=== PATIENT | female | born 1950 | race Caucasian/White ===

== ENCOUNTER → 2016-06-16 | Outpatient (CLI) | payer MEDICARE, OTHER ==
--- NOTE | 2016-06-17 11:00 | MM ---
Reason for exam: screening (asymptomatic). Last mammogram was performed 1 year and 2 months ago. History: Patient is postmenopausal and is nulliparous. Physical Findings: A clinical breast exam by your physician is recommended on an annual basis and results should be correlated with mammographic findings. MG Screening Mammo w CAD Bilateral CC and MLO view(s) were taken. Prior study comparison: April 23, 2015, bilateral MG screening mammo w CAD. March 20, 2014, bilateral MG screening mammo w CAD. There are scattered fibroglandular densities. Focal asymmetry upper outer right breast is stable. No significant changes when compared with prior studies. ASSESSMENT: Benign, BI-RAD 2 RECOMMENDATION: Routine screening mammogram of both breasts in 1 year.
== END | disposition home or self-care (01) ==
LOC: RADMAMWWP 14:20
PROVIDERS: ATTEND Internal Medicine
DX: Z12.31 Encounter for screening mammogram for malignant neoplasm of breast (principal)

== ENCOUNTER → 2017-06-26 | Outpatient (CLI) | payer MEDICARE, OTHER ==
--- NOTE | 2017-06-29 08:34 | MM ---
Reason for exam: screening (asymptomatic). Last mammogram was performed 1 year ago. History: Patient is postmenopausal and is nulliparous. Physical Findings: A clinical breast exam by your physician is recommended on an annual basis and results should be correlated with mammographic findings. MG 3D Screening Mammo W/Cad Bilateral CC and MLO view(s) were taken. Prior study comparison: June 16, 2016, bilateral MG screening mammo w CAD. April 23, 2015, bilateral MG screening mammo w CAD. There are scattered fibroglandular densities. There are typically benign round calcifications in both breasts. There is no discrete abnormality. ASSESSMENT: Negative, BI-RAD 1 RECOMMENDATION: Routine screening mammogram of both breasts in 1 year.
== END | disposition home or self-care (01) ==
LOC: RADMAMWWP 10:05
PROVIDERS: ATTEND Internal Medicine
DX: Z12.31 Encounter for screening mammogram for malignant neoplasm of breast (principal)
CPT/HCPCS: 77063; 77067

== ENCOUNTER → 2017-09-04 | Outpatient (CLI) | payer MEDICARE, OTHER ==
--- NOTE | 2017-09-04 16:23 | US ---
EXAMINATION TYPE: US carotid duplex BILAT DATE OF EXAM: 09/04/2017 COMPARISON: NONE CLINICAL HISTORY: R29.810 FACIAL DROOP. dizziness EXAM MEASUREMENTS: RIGHT: Peak Systolic Velocity (PSV) cm/sec ----- Right CCA: 112.8 ----- Right ICA: 107.0 ----- Right ECA: 187.3 ICA/CCA ratio: 0.9 RIGHT: End Diastole cm/sec ----- Right CCA: 31.4 ----- Right ICA: 32.8 ----- Right ECA: 47.9 LEFT: Peak Systolic Velocity (PSV) cm/sec ----- Left CCA: 101.7 ----- Left ICA: 96.5 ----- Left ECA: 118.5 ICA/CCA ratio: 0.9 LEFT: End Diastole cm/sec ----- Left CCA: 35.7 ----- Left ICA: 31.8 ----- Left ECA: 31.8 VERTEBRALS (direction of flow): Right Vertebral: Antegrade Left Vertebral: Antegrade Rhythm: Normal No significant stenosis seen, elevated velocities right ECA. Minimal plaque seen. IMPRESSION: I DO NOT SEE EVIDENCE OF A HEMODYNAMICALLY SIGNIFICANT STENOSIS IN EITHER CAROTID SYSTEM. Criteria for Assigning % of Stenosis / Diameter reduction (Estimation based on the indirect measurements of the internal carotid artery velocities (ICA PSV). 1. Normal (no stenosis)=ICA PSV < 125 cm/s: ratio < 2.0: ICA EDV<40 cm/s. 2. Less than 50% stenosis=ICA PSV < 125 cm/s: ratio < 2.0: ICA EDV<40 cm/s. 3. 50 to 69% stenosis=ICA PSV of 125 to 230 cm/s: ration 2.0 ? 4.0: ICA EDV 40-100 cm/s. 4. Greater than 70% stenosis to near occlusion= ICA PSV > 230 cm/s: ratio > 4.0: ICA EDV > 100 cm/s. 5. Near occlusion= ICA PSV velocities may be low or undetectable: variable ratio and ICA EDV. 6. Total occlusion=unable to detect flow.
== END | disposition home or self-care (01) ==
LOC: RADUSWWP 15:48
PROVIDERS: ATTEND Psychiatry & Neurology Neurology
DX: R29.810 Facial weakness (principal)
CPT/HCPCS: 93880

== ENCOUNTER → 2018-03-12 | Outpatient (CLI) | payer MEDICARE ==
--- NOTE | 2018-03-12 15:51 | CT ---
EXAMINATION TYPE: CT brain wo con DATE OF EXAM: 03/12/2018 COMPARISON: 04/25/2013 HISTORY: Partial Epilepsy w/impairment of conscious. CT DLP: 892.[address] of the brain was performed. The ventricles, basal cisterns and sulci overlying the cerebral convexities demonstrate mild enlargem ent. There is no evidence for intracranial hemorrhage or sulcal effacement. There is decreased attenuation about the periventricular white matter and deep white matter of both c erebral hemispheres, compatible with chronic small vessel ischemia. Differential diagnosis does inclu de demyelination. No mass effects are seen.No midline shift. Osseous calvarium is intact. If symptoms persist consider MRI. IMPRESSION: 1. Age related atrophic and chronic small vessel ischemic change without acute intracranial process s een at this time.
== END | disposition home or self-care (01) ==
LOC: RADCTMAIN 14:55
PROVIDERS: ATTEND Psychiatry & Neurology Neurology
DX: G31.1 Senile degeneration of brain, not elsewhere classified (principal); I67.82 Cerebral ischemia
CPT/HCPCS: 70450

== ENCOUNTER → 2018-07-07 | Outpatient (CLI) | payer MEDICARE ==
--- NOTE | 2018-07-08 09:51 | MM ---
Reason for exam: screening (asymptomatic). Last mammogram was performed 1 year ago. History: Patient is postmenopausal and is nulliparous. Physical Findings: A clinical breast exam by your physician is recommended on an annual basis and results should be correlated with mammographic findings. MG 3D Screening Mammo W/Cad Bilateral CC and MLO view(s) were taken. Prior study comparison: June 26, 2017, bilateral MG 3d screening mammo w/cad. June 16, 2016, bilateral MG screening mammo w CAD. There are scattered fibroglandular densities. Benign appearing bilateral calcifications. No significant changes when compared with prior studies. ASSESSMENT: Benign, BI-RAD 2 RECOMMENDATION: Routine screening mammogram of both breasts in 1 year.
== END | disposition home or self-care (01) ==
LOC: RADMAMWWP 09:46
PROVIDERS: ATTEND Internal Medicine
DX: Z12.31 Encounter for screening mammogram for malignant neoplasm of breast (principal)
CPT/HCPCS: 77063; 77067

== ENCOUNTER → 2019-01-25 | Outpatient (CLI) | payer MEDICARE, OTHER | END | disposition home or self-care (01) | LOC: LABWHC1 15:58 | PROVIDERS: ATTEND Surgery Plastic and Reconstructive Surgery | DX: Z01.810 Encounter for preprocedural cardiovascular examination (principal) | CPT/HCPCS: 36415; 93005 ==

== ENCOUNTER → 2019-04-22 | Outpatient (CLI) | payer MEDICARE, OTHER ==
[2019-04-22 09:34] LABS: HCT 41.1 % (34.0-46.0); HGB 13.5 gm/dL (11.4-16.0); MCH 29.7 pg (25.0-35.0); MCHC 32.9 g/dL (31.0-37.0); MCV 90.1 fL (80.0-100.0); Platelet Count 254 k/uL (150-450); RBC 4.56 m/uL (3.80-5.40); WBC 10.5 k/uL (3.8-10.6)
[2019-04-22 16:09] LABS: African American GFR (CKD) 87.2 (60.0-200.0); Albumin 4.4 g/dL (3.80-4.90); Albumin/Globulin Ratio 1.69 (1.60-3.17); Anion Gap 7.7 mmol/L (4.00-12.00); BUN/Creat Ratio 22.5 Ratio (12.00-20.00); Calcium 9.3 mg/dL (8.7-10.3); Carbon Dioxide 27.3 mmol/L (21.6-31.8); Globulin 2.6 g/dL (1.6-3.3); Non-African American GFR(CKD) 75.2 (60.0-200.0); Potassium 4.5 mmol/L (3.5-5.5); Total Bilirubin 0.3 mg/dL (0.2-1.2)
== END | disposition home or self-care (01) ==
LOC: LABWHC1 08:49
PROVIDERS: ATTEND Surgery Plastic and Reconstructive Surgery
DX: C18.2 Malignant neoplasm of ascending colon (principal)
CPT/HCPCS: 36415; 80053; 85027

== ENCOUNTER 2019-04-28 07:15 | Inpatient (IN) | payer MEDICARE, OTHER ==
[2019-04-26 12:46] VITALS: BMI 29.2
[2019-05-02 08:59] VITALS: RESP 16
[2019-05-02 16:13] VITALS: BP 168/88; PULSE 51; TEMP 97.6
== END 2019-05-02 16:14 | disposition home or self-care (01) | DRG 329 ==
LOC: OR 07:15 → EDSTATUS 07:30 → 4SSUR 11:33 → OR 04-29 14:35
PROVIDERS: ADMIT Surgery Plastic and Reconstructive Surgery; ATTEND Surgery Plastic and Reconstructive Surgery
PROC: 0DJD8ZZ Inspection of Lower Intestinal Tract, Via Natural or Artificial Opening Endoscopic (ICD-10-PCS; 2019-04-28)
PROC: 0DTF4ZZ Resection of Right Large Intestine, Percutaneous Endoscopic Approach (ICD-10-PCS; principal; 2019-04-29)
PROC: 8E0W4CZ Robotic Assisted Procedure of Trunk Region, Percutaneous Endoscopic Approach (ICD-10-PCS; principal; 2019-04-29)
DX: C18.0 Malignant neoplasm of cecum (principal); K56.2 Volvulus; Q43.8 Other specified congenital malformations of intestine; K56.7 Ileus, unspecified; E78.5 Hyperlipidemia, unspecified; E11.9 Type 2 diabetes mellitus without complications; F03.90 Unspecified dementia, unspecified severity, without behavioral disturbance, psychotic disturbance, mood disturbance, and anxiety; F20.9 Schizophrenia, unspecified; F31.9 Bipolar disorder, unspecified; F41.9 Anxiety disorder, unspecified; G40.909 Epilepsy, unspecified, not intractable, without status epilepticus; I11.9 Hypertensive heart disease without heart failure; K64.4 Residual hemorrhoidal skin tags; F70 Mild intellectual disabilities; K21.9 Gastro-esophageal reflux disease without esophagitis; R33.9 Retention of urine, unspecified; K57.30 Diverticulosis of large intestine without perforation or abscess without bleeding; K64.8 Other hemorrhoids; Z79.82 Long term (current) use of aspirin; Z79.84 Long term (current) use of oral hypoglycemic drugs; Z79.899 Other long term (current) drug therapy; Z82.49 Family history of ischemic heart disease and other diseases of the circulatory system; Z86.73 Personal history of transient ischemic attack (TIA), and cerebral infarction without residual deficits; Z87.828 Personal history of other (healed) physical injury and trauma; Z90.49 Acquired absence of other specified parts of digestive tract
CPT/HCPCS: 45378; 71045; 71260; 74019; 74177; 80048; 80053; 82105; 82378; 82746; 83735; 84100; 85025; 86850; 86900; 86901; 88309; 94760

== ENCOUNTER → 2019-10-17 | Outpatient (CLI) | payer MEDICARE, OTHER ==
--- NOTE | 2019-10-18 10:08 | MM ---
Reason for exam: screening (asymptomatic). Last mammogram was performed 1 year and 3 months ago. History: Patient is postmenopausal and is nulliparous. Physical Findings: A clinical breast exam by your physician is recommended on an annual basis and results should be correlated with mammographic findings. MG 3D Screening Mammo W/Cad Bilateral CC and MLO view(s) were taken. Prior study comparison: July 07, 2018, bilateral MG 3d screening mammo w/cad. June 26, 2017, bilateral MG 3d screening mammo w/cad. There are scattered fibroglandular densities. There is no discrete abnormality. No significant changes when compared with prior studies. ASSESSMENT: Negative, BI-RAD 1 RECOMMENDATION: Routine screening mammogram of both breasts in 1 year.
== END | disposition home or self-care (01) ==
LOC: RADMAMWWP 09:14
PROVIDERS: ATTEND Internal Medicine
DX: Z12.31 Encounter for screening mammogram for malignant neoplasm of breast (principal)
CPT/HCPCS: 77063; 77067

== ENCOUNTER 2021-05-23 10:57 | Day surgery (SDC) | payer MEDICARE, OTHER ==
[2021-05-21 09:05] VITALS: BMI 25.5
[2021-05-23] MEDS ORDERED: SODIUM CHLORIDE 0.9% 500 ML 500 ML IV ONE (11:08)
[2021-05-23 11:29] VITALS: RESP 16; TEMP 98.3
[2021-05-23 11:32] LABS: Glucose,Whole Blood 111 mg/dL (75-99)
[2021-05-23] MEDS ORDERED: fentaNYL (PF) 50 MCG/ML 2 ML AMP ONE (11:58)
[2021-05-23] MEDS ORDERED: BENZOCAINE SPRAY 1 CAN MUCOUS MEM ONE (12:01)
[2021-05-23] MEDS ORDERED: fentaNYL (PF) 50 MCG/ML 2 ML AMP IV ONE ×2 (12:03)
[2021-05-23] MEDS ORDERED: MIDAZOLAM 2 MG/2 ML VIAL IV ONE (12:03)
--- NOTE | 2021-05-23 12:54 | ECHOT ---
TRANSESOPHAGEAL ECHOCARDIOGRAM INDICATION: TIA. PROCEDURE NOTE: After obtaining informed consent, transesophageal echocardiogram is performed in left lateral position using a probe. Local and IV sedation were obtained with Xylocaine spray, 1 mg of Versed and 50 mcg of fentanyl. The patient tolerated the procedure well without any obvious immediate complications. FINDINGS: 1. Interatrial septum: There is no evidence of sxcx-ja-zxnfy shunt with color-flow Doppler. There is evidence of wkqux-ng-itei shunt with agitated saline contrast study. 2. There is no intracardiac thrombus within the left atrial appendage, left atrium, right atrium, right ventricle. 3. Left ventricle has normal size and systolic function. 4. Aortic valve is a 3-leaflet valve. There is no evidence of aortic stenosis or regurgitation. 5. Tricuspid valve appears normal. There is mild tricuspid regurgitation. 6. Mitral valve shows mild mitral regurgitation. LV systolic function is normal. Aortic root measures within normal limits. CONCLUSION: 1. There is evidence of zucjj-ro-mzxd shunt involving an aneurysmal interatrial septum and secondary to a PFO. 2. Prominent Chiari network is noted in the right atrium. 3. Mild mitral regurgitation. 4. Normal LV function. MMODL / IJN: [id number] /
[2021-05-23 16:13] VITALS: BP 151/73; PULSE 66
== END 2021-05-23 13:39 ==
LOC: CATHCVL 10:57
PROVIDERS: ATTEND Internal Medicine Cardiovascular Disease
DX: G45.9 Transient cerebral ischemic attack, unspecified (principal); I08.1 Rheumatic disorders of both mitral and tricuspid valves; Q21.1 Atrial septal defect; I10 Essential (primary) hypertension; E11.9 Type 2 diabetes mellitus without complications; F03.90 Unspecified dementia, unspecified severity, without behavioral disturbance, psychotic disturbance, mood disturbance, and anxiety; F41.9 Anxiety disorder, unspecified; F32.A Depression, unspecified; E78.2 Mixed hyperlipidemia; R55 Syncope and collapse; Z79.899 Other long term (current) drug therapy; Z79.82 Long term (current) use of aspirin; Z79.84 Long term (current) use of oral hypoglycemic drugs; Z79.02 Long term (current) use of antithrombotics/antiplatelets; Z82.49 Family history of ischemic heart disease and other diseases of the circulatory system
CPT/HCPCS: 93312; 93320; 93325; J2250; J3010

== ENCOUNTER 2021-07-09 09:01 | Day surgery (SDC) | payer MEDICARE, OTHER ==
[~2021-07-09 09:01] MED LIST: ALPRAZolam 0.25 MG TAB PO PRN; ALPRAZolam 0.5 MG TAB PO PRN; ASPIRIN 325 MG TAB PO STA; ATORVASTATIN 80 MG TAB PO STA; HEPARIN SODIUM,PORCINE 10,000 UNIT in SODIUM CHLORIDE 0.9% 1,000 ML IRRIGATION PRN; HEPARIN SODIUM,PORCINE 2,500 UNIT in SODIUM CHLORIDE 0.9% 250 ML IRRIGATION PRN; NITROGLYCERIN SL TABS 0.4 MG TAB SUBLINGUAL PRN
[2021-07-09] MEDS: SODIUM CHLORIDE 0.9% 1,000 ML in EMPTY BAG 1 BAG IV SCH ×3 (09:35→20:10)
[2021-07-09] MEDS ORDERED: ASPIRIN 81 MG ONE (09:37)
[2021-07-09 09:41] LABS: Glucose,Whole Blood 125 mg/dL (75-99)
[2021-07-09] MEDS ORDERED: MIDAZOLAM 2 MG/2 ML VIAL IV ONE (11:00)
[2021-07-09] MEDS ORDERED: fentaNYL (PF) 50 MCG/ML 2 ML AMP IV ONE (11:04)
[2021-07-09] MEDS: fentaNYL (PF) 50 MCG/ML 2 ML AMP IV ONE ×2 (11:04→11:08)
[2021-07-09] MEDS ORDERED: LIDOCAINE 1% INJ 10MG/ML (30 ML VIAL-PF) SQ ONE (11:06)
[2021-07-09 14:46] VITALS: RESP 18
[2021-07-09] MEDS: LORazepam 0.5 MG TAB PO SCH ×2 (16:29→20:06)
[2021-07-09] MEDS: haloperidoL 5 MG TAB PO SCH (20:05)
[2021-07-09] MEDS: BENZTROPINE MESYLATE 0.5 MG TAB PO SCH (20:06)
[2021-07-09] MEDS: CALCIUM CARB-VIT D 500 MG-5 MCG TAB PO SCH (20:06)
[2021-07-09] MEDS: NON FORMULARY DRUG (Brivaracetam [Briviact] 50 MG Tablet) PO SCH (20:11)
[2021-07-09] MEDS ORDERED: OXCARBAZEPINE 150 MG PO SCH (21:00)
[2021-07-09] MEDS ORDERED: ATORVASTATIN 40 MG TAB PO SCH (21:00)
[2021-07-09] MEDS ORDERED: SERTRALINE 25 MG TAB PO SCH (21:00)
[2021-07-09] MEDS ORDERED: SERTRALINE 100 MG TAB PO SCH (21:00)
[2021-07-09] MEDS ORDERED: NON FORMULARY DRUG (Lubiprostone [Amitiza] 24 MCG Capsule) PO SCH (21:00)
[2021-07-09] MEDS ORDERED: LINAGLIPTIN 5 MG TABLET PO SCH (21:00)
[2021-07-09] MEDS ORDERED: NON FORMULARY DRUG (Oxcarbazepine [Oxtellar Xr] 300 MG Tablet) PO SCH (21:00)
--- NOTE | 2021-07-09 23:58 | P.PCN ---
Description of Procedure: TRANSCATHETER CLOSURE OF INTERATRIAL COMMUNICATION/ PFO PROCEDURES PERFORMED: 1. Closure of PFO via a right femoral venous percutaneous approach using a 25mm Amplatzer Occluder device. 2. Intracardiac echocardiography using an 8-Croatian AcuNav ultrasound catheter 3. RFV access under direct U/S visualization x 2 DATE OF PROCEDURE: 07/09/2021 OPERATORS: 1. Talha Aguiar DO interventional cardiology INDICATIONS: History of crypotogenic stroke PFO and positive bubble study by TAWNYA. SEDATION: Under my direct supervision the patient was administered moderate conscious sedation with Versed and Fentanyl for a total of 44 minutes. PRPOCEDURE SUMMARY: Prior to sedation, the risks, benefits and alternatives of the procedure were discussed with the patient and guardian. Both verbal and written consents were obtained. The patient was transported to the cardiac catheterization suite and prepped and draped in the usual sterile fashion for access to the right groin. The patient received conscious sedation in the form of Versed and Fentanyl intravenously. 2% lidocaine was infused into the right groin for local anesthe franc. Then, under direct ultrasound visualization, right femoral vein was accessed using micropuncture technique and two 8-Croatian 11 cm sheaths were placed into the right femoral vein. The 8-Croatian AcuNav ICE ultrasound catheter was then advanced through into the right atrium where intracardiac echocardiography was performed. PRE PROCEDURE ULTRASOUND: This demonstrated no evidence of pericardial effusion. It demonstrated normal appearing aortic valve. Overall the left ventricular function and chamber size appeared within normal limits. The LV function appeared preserved with no significant wall motion abnormalities. There was color flow visualized across the inter-atrial septum with ICE. The tricuspid valve was normal with mild tricuspid regurgitation. The visualized portions of the left atrium and left atrial appendage demonstrated no significant abnormalities. There was a significant PFO by color. After images were obtained with the ICE catheter, a 6-Croatian multipurpose catheter was inserted into the RFV and was used to cross the septum into the left atrium. Heparin was given to keep ACT > 200-250. The catheter was then advanced into the LA and placed in the L superior pulmonary vein. A 0.035 260 cm Garcia wire was then advanced via the catheter and placed in the vein. The catheter was then removed and the 8-Croatian sheath was also removed over the Amplatzer wire. This was exchanged for a 8 Croatian 91-zjrqrd-kapy delivery sheath with introducer. This was advanced to the PFO where the sheath was then advanced across the defect over the Garcia wire. The introducer was removed and blood was drawn back. The Garcia wire was then removed. A 25mm Amplatzer PFO occluder device was then opened, prepped and then loaded into the sheath. Under fluoroscopy and ultrasound guidance, the Amplatzer occluder was advanced through the edge of the sheath. The left atrial side was deployed and was pulled back to the interatrial septum and the right atrial side was deployed. With the device still captured, intracardiac echocardiography was performed demonstrating good capture on all 6 rims with no impingement on valvular function. The delivery system was then released and removed. The final intracardiac echocardiographic images were again once obtained. POST DELIVERY INTRACARDIAC ECHOCARDIOGRAPHIC IMAGES: This demonstrated again no evidence of pericardial effusion. All 6 rims were visualized and demonstrated adequate purchase and the device in stable position. There was no further evidence of interatrial communication by color flow Doppler. The aortic and mitral valves appeared to be functioning appropriately with no impingement of flow. Again overall the left ventricular function appeared within normal limits and again, no effusion was noted. At this point, the 8-Croatian catheters were pulled and Z stitch was placed with hemostasis achieved. The patient was transferred to the [facility] in stable condition. COMPLICATIONS: None. FINAL IMPRESSIONS: Successful closure of a PFO with a 25 mm Amplatzer PFO occluder device. No evidence of complication, arrhythmia or other noted. RECOMMENDATIONS: A limited transthoracic echocardiogram will be obtained in the morning. The patient will be transferred to the floor, monitoring overnight. Will plan for discharge in the morning. Aspirin daily, Plavix 75 mg daily, followup in the clinic in approximately 1 week as previously scheduled. Antibiotic prophylaxis for any procedure for one year.
[2021-07-10 08:03] VITALS: BP 127/78; PULSE 61; TEMP 97.7
--- NOTE | 2021-07-10 08:17 | XR ---
EXAMINATION TYPE: XR chest 2V DATE OF EXAM: 07/10/2021 COMPARISON: Chest x-ray April 29, 2019 HISTORY: ASD/PFO placement TECHNIQUE: Frontal and lateral views of the chest are obtained. FINDINGS: Minimal linear density over the right posterior aspect of the heart corresponds to a surgic al patch from ASD repair. Stable mild cardiomegaly with small to tiny bilateral pleural effusions see n best on lateral x-ray. No pneumothorax noted bilaterally. Patchy left basilar opacity favors atelec tatic change. The osseous structures are intact. IMPRESSION: As above.
[2021-07-10] MEDS ORDERED: TAMSULOSIN 0.4 MG CAP.ER.24H PO SCH (08:30)
[2021-07-10] MEDS ORDERED: PANTOPRAZOLE 40 MG TABLET PO SCH (09:00)
[2021-07-10] MEDS ORDERED: NON FORMULARY DRUG (Eslicarbazepine Acetate [Aptiom] 600 MG Tablet) PO SCH (09:00)
[2021-07-10] MEDS ORDERED: FAMOTIDINE 20 MG TAB PO SCH (09:00)
[2021-07-10] MEDS ORDERED: ARIPiprazole 15 MG TAB PO SCH (09:00)
[2021-07-10] MEDS ORDERED: CHOLECALCIFEROL 25 MCG (1000 IU) TABLET PO SCH (09:00)
[2021-07-10] MEDS ORDERED: ASPIRIN 81 MG PO SCH (09:00)
[2021-07-10] MEDS ORDERED: LOSARTAN 25 MG TAB PO SCH (09:00)
[2021-07-10] MEDS ORDERED: CLOPIDOGREL 75 MG TAB PO SCH (09:00)
[2021-07-10 09:08] LABS: Basophils # (A) 0.03 X 10*3/uL (0.00-0.10); Basophils % (A) 0.3 %; Eosinophils # (A) 0.22 X 10*3/uL (0.04-0.35); Eosinophils % (A) 2.4 %; HCT 38.5 % (37.2-46.3); HGB 13.2 g/dL (12.0-15.0); Lymphocytes % (A) 13.2 %; MCH 31.1 pg (27.0-32.0); MCHC 34.3 g/dL (32.0-37.0); MCV 90.6 fL (80.0-97.0); Mean Platelet Volume 9.5 fL (9.5-12.2); Monocytes # (A) 0.58 X 10*3/uL (0.20-1.00); Monocytes % (A) 6.4 %; NRBC Per 100 WBC 0 /100 WBCS (0.0-0.0); Neutrophils # (A) 6.95 X 10*3/uL (1.80-7.70); Neutrophils % (A) 76.7 %; Platelet Count 185 X 10*3/uL (140-440); RBC 4.25 X 10*6/uL (4.10-5.20); RDW 13.6 % (11.5-14.5); WBC 9.07 X 10*3/uL (4.50-10.00)
[2021-07-10] MEDS: CALCIUM CARB-VIT D 500 MG-5 MCG TAB PO SCH (09:09)
[2021-07-10] MEDS: LORazepam 0.5 MG TAB PO SCH (09:09)
[2021-07-10] MEDS: BENZTROPINE MESYLATE 0.5 MG TAB PO SCH (09:10)
[2021-07-10] MEDS: haloperidoL 5 MG TAB PO SCH (09:10)
[2021-07-10] MEDS: SODIUM CHLORIDE 0.9% 1,000 ML in EMPTY BAG 1 BAG IV SCH (09:12)
[2021-07-10] MEDS: NON FORMULARY DRUG (Brivaracetam [Briviact] 50 MG Tablet) PO SCH (09:12)
[2021-07-10 10:18] LABS: Anion Gap 11.3 mmol/L (10.00-18.00); Carbon Dioxide 22.7 mmol/L (20.0-27.5); Non-African American GFR(CKD) 87.2 (60.0-200.0); Potassium 3.8 mmol/L (3.5-5.5)
--- NOTE | 2021-07-10 12:34 | CA ---
Transthoracic Echo Report Name: Micki Valladares Age: 71 Gender: F : 1950 Exam Date: 07/10/2021 07:39 Exam Location: [facility] Ht (in): 65 Wt (lb): 168 Ordering Physician: Talha Aguiar DO ([email or web address]) Attending/Referring Phys: Plastic Mould Maker Shanti Harden RDCS Procedure CPT: Indications: Post ASD/PFO Insertion Cardiac Hx: Technical Quality: Fair Contrast 1: Total Dose (mL): Contrast 2: Total Dose (mL): MEASUREMENTS (Male / Female) Normal Values FINDINGS Left Ventricle Left ventricular ejection fraction is estimated at 55-60 %. Right Ventricle Right Atrium Left Atrium ATRIAL SEPTAL DEVICE IS IN PLACE. NO SHUNT SEEN Mitral Valve Aortic Valve Tricuspid Valve Pulmonic Valve Pericardium No pericardial effusion. Aorta CONCLUSIONS Atrial septal device was seen any place No evidence of residual shunt No evidence of pericardial effusion Previewed by: Dr. Lacho Meza MD (Electronically Signed) Final Date: 10 Jul 2021 12:34
--- NOTE | 2021-07-10 13:06 | P.DS ---
Providers Attending physician: Talha Aguiar DO Primary care physician: Tyesha Torres MD Hospital Course: Patient is a pleasant 71-year-old female with history of diabetes, hypertension, hyperlipidemia, stroke. She has been evaluated for recurrent strokes and had workup with TAWNYA showing PFO. Given cryptogenic stroke recommendation was for closure of PFO. Patient underwent PFO closure 07/09/2021. Repeat echo 07/10/2021 showed no significant shunt and PFO closure device in place without any pericardial effusion. She has been doing well on medications this morning. She does confused which is her baseline. She denies any chest pain or pressure. Appears stable for discharge home with outpatient follow-up. Plan - Discharge Summary Discharge Rx Participant: No New Discharge Prescriptions: Continue Ammonium Lactate Cream [Lac-Hydrin 12% Cream] 1 applic TOPICAL DAILY sitaGLIPtin [Januvia] 100 mg PO HS LORazepam [Ativan] 0.5 mg PO TID ARIPiprazole [Abilify] 30 mg PO DAILY Aspirin 81 mg PO DAILY Clotrimazole Cream [Lotrimin Cream] 1 applic TOPICAL DAILY Benztropine Mesylate [Cogentin] 0.5 mg PO BID Sertraline [Zoloft] 25 mg PO HS Atorvastatin [Lipitor] 40 mg PO HS Losartan Potassium [Cozaar] 25 mg PO DAILY Sertraline [Zoloft] 100 mg PO HS Lubiprostone [Amitiza] 24 mcg PO HS Cholecalciferol [Vitamin D3 (25 Mcg = 1000 Iu)] 2,000 unit PO DAILY Calcium Carb-Vit D 500Mg-5Mcg [Oscal 500+D 5 Mcg (200 Iu)] 1 each PO BID Brivaracetam [Briviact] 50 mg PO BID Tamsulosin [Flomax] 0.4 mg PO PC-BRKFST #30 cap.er.24h haloperidoL [Haldol] 5 mg PO BID OXcarbazepine [Oxtellar Xr] 300 mg PO HS Famotidine 20 mg PO DAILY Pantoprazole [Protonix] 40 mg PO DAILY Clopidogrel [Plavix] 75 mg PO DAILY OXcarbazepine [Oxtellar Xr] 150 mg PO HS Eslicarbazepine Acetate [Aptiom] 600 mg PO DAILY Discharge Medication List ARIPiprazole [Abilify] 30 mg PO DAILY 12/16/13 [History] Ammonium Lactate Cream [Lac-Hydrin 12% Cream] 1 applic TOPICAL DAILY 12/16/13 [History] Aspirin 81 mg PO DAILY 12/16/13 [History] Clotrimazole Cream [Lotrimin Cream] 1 applic TOPICAL DAILY 12/16/13 [History] LORazepam [Ativan] 0.5 mg PO TID 12/16/13 [History] sitaGLIPtin [Januvia] 100 mg PO HS 12/16/13 [History] Atorvastatin [Lipitor] 40 mg PO HS 04/27/19 [History] Benztropine Mesylate [Cogentin] 0.5 mg PO BID 04/27/19 [History] Brivaracetam [Briviact] 50 mg PO BID 04/27/19 [History] Calcium Carb-Vit D 500Mg-5Mcg [Oscal 500+D 5 Mcg (200 Iu)] 1 each PO BID 04/27/19 [History] Cholecalciferol [Vitamin D3 (25 Mcg = 1000 Iu)] 2,000 unit PO DAILY 04/27/19 [History] Losartan Potassium [Cozaar] 25 mg PO DAILY 04/27/19 [History] Lubiprostone [Amitiza] 24 mcg PO HS 04/27/19 [History] Sertraline [Zoloft] 25 mg PO HS 04/27/19 [History] Sertraline [Zoloft] 100 mg PO HS 04/27/19 [History] Tamsulosin [Flomax] 0.4 mg PO PC-BRKFST #30 cap.er.24h 05/02/19 [Rx] Clopidogrel [Plavix] 75 mg PO DAILY 05/21/21 [History] Famotidine 20 mg PO DAILY 05/21/21 [History] OXcarbazepine [Oxtellar Xr] 150 mg PO HS 05/21/21 [History] OXcarbazepine [Oxtellar Xr] 300 mg PO HS 05/21/21 [History] Pantoprazole [Protonix] 40 mg PO DAILY 05/21/21 [History] haloperidoL [Haldol] 5 mg PO BID 05/21/21 [History] Eslicarbazepine Acetate [Aptiom] 600 mg PO DAILY 07/08/21 [History] Follow up Appointment(s)/Referral(s): Berto Nunez MD [STAFF PHYSICIAN] - 07/16/21 3:30 pm
== END 2021-07-10 15:30 | disposition home or self-care (01) ==
LOC: CATHCVL 09:01 → 6NMEDSUR 12:23 → CATHCVL 07-10 15:30
PROVIDERS: ATTEND Internal Medicine
DX: Q21.1 Atrial septal defect (principal); Z20.822 Contact with and (suspected) exposure to COVID-19; I10 Essential (primary) hypertension; E11.9 Type 2 diabetes mellitus without complications; E78.5 Hyperlipidemia, unspecified; Z79.02 Long term (current) use of antithrombotics/antiplatelets; Z79.82 Long term (current) use of aspirin; Z79.84 Long term (current) use of oral hypoglycemic drugs; Z86.73 Personal history of transient ischemic attack (TIA), and cerebral infarction without residual deficits
CPT/HCPCS: 93308; 93580; 93662; 86900; 86901; 80048; 85025; 86850; 87635; 71046; C1769 ×4; C1894; C1817; C1759; J2250; J0690; J2001; J3010; J1644

== ENCOUNTER → 2021-11-12 | Outpatient (CLI) | payer MEDICARE, OTHER ==
--- NOTE | 2021-11-12 13:23 | US ---
EXAMINATION TYPE: US venous doppler duplex LE RT DATE OF EXAM: 11/12/2021 12:45 PM COMPARISON: NONE CLINICAL HISTORY: M79.604 PAIN IN RT LEG. Intermittent pain right leg SIDE PERFORMED: right TECHNIQUE: The lower extremity deep venous system is examined utilizing real time linear array sonog shirin with graded compression, doppler sonography and color-flow sonography. VESSELS IMAGED: Common Femoral Vein Deep Femoral Vein Greater Saphenous Vein * Femoral Vein Popliteal Vein Small Saphenous Vein * Proximal Calf Veins (* superficial vessels) Right Leg: No evidence of DVT Grayscale, color doppler, spectral doppler imaging performed of the de ep veins of the lower extremities. There is normal flow, compressibility, vascular waveforms. IMPRESSION: No evidence of right lower extremity deep vein thrombosis
== END | disposition home or self-care (01) ==
LOC: RADUSWWP 12:18
PROVIDERS: ATTEND Family Medicine
DX: M79.604 Pain in right leg (principal)

== ENCOUNTER → 2023-05-06 | Outpatient (CLI) | payer MEDICARE, OTHER ==
--- NOTE | 2023-05-07 08:28 | US ---
EXAMINATION TYPE: US abdomen complete DATE OF EXAM: 05/06/2023 COMPARISON: CLINICAL INDICATION: Female, 73 years old with history of Z85.038 PERSONAL HX OF SHANON LRG INTESTINE; P oor historian. Patient said she had her gallbladder removed through her belly button. TECHNIQUE: Multiple sonographic images of the abdomen are obtained. FINDINGS: EXAM MEASUREMENTS: Liver Length: 16.0 cm CBD: 0.6 cm Spleen: 9.7 cm Right Kidney: 11.2 x 4.5 x 4.3 cm Left Kidney: 10.6 x 4.6 x 4.0 cm Pancreas: Tail not well seen Liver: Small 9 mm echogenic focus with shadowing at denny hepatis = 0.9 x 0.8 cm Gallbladder: Surgically absent. Peristalsing seen in GB fossa region. Evidence for sonographic Bland's sign: neg CBD: wnl CHD: wnl Spleen: wnl Right Kidney: No hydronephrosis or masses seen Left Kidney: No hydronephrosis. Upper IVC: wnl Abd Aorta: No AAA visualized at time of scan IMPRESSION: 9 mm echogenic focus with shadowing at the denny hepatis possibly shadowing debris within interposed bowel. Questionable clinical significance. The gallbladder surgically absent. Consider 3 month follow -up ultrasound to reassess.
== END | disposition home or self-care (01) ==
LOC: RADUSWWP 08:31
PROVIDERS: ATTEND Family Medicine
DX: Z85.038 Personal history of other malignant neoplasm of large intestine (principal); Z90.49 Acquired absence of other specified parts of digestive tract
CPT/HCPCS: 76700

== ENCOUNTER → 2023-08-19 | Outpatient (CLI) | payer MEDICARE, OTHER ==
--- NOTE | 2023-08-19 15:44 | US ---
EXAMINATION TYPE: US abdomen comp/pelvis limited DATE OF EXAM: 08/19/2023 COMPARISON: US 05/06/2023, CT chest abdomen pelvis 04/28/2019 CLINICAL INDICATION: Female, 73 years old with history of R10.9 UNSPECIFIED ABDOMINAL PAIN; F/U prior US, GB removed EXAM MEASUREMENTS: Liver Length: 14.5 cm CBD: 0.6 cm Spleen: 10.4 cm Right Kidney: 10.3 x 4.2 x 4.9 cm Left Kidney: 11.7 x 4.6 x 4.7 cm Pancreas: wnl Liver: Echogenic area visualized on today's exam as visualized on prior. Gallbladder: Surgically absent CBD: wnl Spleen: wnl Right Kidney: wnl, lower pole gassed out Left Kidney: wnl Upper IVC: wnl Abd Aorta: wnl Bladder: wnl Bilateral Jets Seen No IMPRESSION: 1. No ultrasound evidence for an acute process. 2. Previously seen echogenic focus in the denny hepatis is redemonstrated. Nonspecific appearance and possibly could represent shadowing debris within bowel versus other etiologies. Consider further izabela luation with CT abdomen with and without IV contrast.
== END | disposition home or self-care (01) ==
LOC: RADUSWWP 08:00
PROVIDERS: ATTEND Family Medicine
DX: R10.9 Unspecified abdominal pain (principal)
CPT/HCPCS: 76700; 76857

== ENCOUNTER → 2023-09-10 | Outpatient (CLI) | payer MEDICARE, OTHER ==
[2023-09-10 11:03] LABS: African American GFR (CKD) >90 (>60 ml/min/1.73 sqM); Blood Urea Nitrogen 16 mg/dL (7-17); Non-African American GFR(CKD) >90 (>60 ml/min/1.73 sqM)
--- NOTE | 2023-09-11 10:46 | CT ---
EXAMINATION TYPE: CT abdomen pelvis wo/w con CT DLP: 2457 mGycm, Automated exposure control for dose reduction was used. DATE OF EXAM: 09/10/2023 12:11 PM COMPARISON: Abdominal ultrasound 08/19/2023, 05/06/2023, CT chest abdomen pelvis 04/28/2019. CLINICAL INDICATION:Female, 73 years old with history of R93.89 ABNORMAL FINDINGS ON DX IMAGING OF OT H BODY; abnormal findings on US TECHNIQUE: Standard CT of the abdomen and pelvis before and after the uneventful administration of 100 cc of Isovue-300 intravenously. Oral contrast was administered. Coronal and sagittal reformats we re performed. FINDINGS: LOWER CHEST: Trace bilateral pleural effusions. Left anterior chest wall loop recorder. Cardiomegaly. Atrial septal closure device. Coronary artery calcifications within the LAD. Linear atelectasis with in the lingula and right middle lobe. ABDOMEN LIVER: Unremarkable GALLBLADDER AND BILE DUCTS: Gallbladder is surgically absent. No calcification identified within the gallbladder fossa corresponding to ultrasound. No abnormality identified within the gallbladder fossa . No biliary duct dilatation. PANCREAS: Unremarkable. SPLEEN: Unremarkable. ADRENAL GLANDS: Unremarkable. KIDNEYS AND URETERS: No evidence of hydronephrosis or renal calculus. The kidneys enhance symmetrical ly. This demonstrated within both collecting systems on delayed phase. A few subcentimeter right david l hypodense foci identified which are too small to characterize but likely represent cysts. PELVIS BLADDER: Incompletely distended but grossly unremarkable. REPRODUCTIVE: Coarse calcified stations identified consistent with calcified small fibroids. ABDOMEN & PELVIS STOMACH AND BOWEL: Small hiatal hernia, duodenum is unremarkable. Post surgical changes involving the right lower quadrant from bowel resection. Enteric contrast reaches the mid small bowel. No focal shereen wel wall thickening or surrounding inflammatory changes. No evidence of bowel obstruction. PERITONEUM: No evidence of pneumoperitoneum or free fluid. VASCULATURE: Minimal atherosclerotic calcifications are present throughout the abdominal aorta and it s branches. No evidence of aortic aneurysm. Few pelvic phleboliths. MUSCULOSKELETAL: No acute osseous abnormalities. Grade 1 anterolisthesis of L4-L5 without evidence of pars defect. Multilevel degenerative disc disease, most prominent at L5-S1. LYMPH NODES: No evidence for lymphadenopathy. SOFT TISSUE/ABDOMINAL WALL: Unremarkable IMPRESSION: 1. No CT evidence for abnormality within the gallbladder fossa corresponding to ultrasound. Ultrasou nd finding likely represents a benign process. 2. Fibroid changes of the uterus. 3. Post cholecystectomy. 4. Trace pleural effusions with cardiomegaly.
== END | disposition home or self-care (01) ==
LOC: RADCTMAIN 09:56
PROVIDERS: ATTEND Family Medicine
DX: R93.89 Abnormal findings on diagnostic imaging of other specified body structures (principal); D25.9 Leiomyoma of uterus, unspecified; I51.7 Cardiomegaly; Z90.49 Acquired absence of other specified parts of digestive tract
CPT/HCPCS: 82565; 84520; 74178; 36415; Q9967